=== PATIENT | female | born 1960 | race Caucasian/White ===

== ENCOUNTER 2022-10-27 15:07 | Emergency (ER) | payer MEDICARE, SELFPAY ==
[2022-10-27 15:16] VITALS: BP 93/60; PULSE 96; RESP 20; TEMP 36.7; O2SAT 97
--- NOTE | 2022-10-27 16:17 | ED.GENADULT ---
HPI - General Adult General Chief complaint: Skin/Abscess/Foreign Body Stated complaint: Skin Problem/Right Leg Source: patient Mode of arrival: ambulatory Limitations: no limitations History of Present Illness HPI narrative: Patient presents with concerns regarding a blister to the right lower extremity. Symptom onset yesterday. She has chronic redness and swelling to bilateral lower extremities. She indicates she fractured her hip sometime last year. There is some imaging done in September of 2021 that showed a fracture but she indicates she was not informed of this until March 2022 when she attempted to have an injection performed in that joint. She states she recently saw Dr Rdz and is tentatively planning on right hip repair. She denies any fever, chills, nausea, vomiting, purulence from the affected area. She is diabetic. She does not check her blood sugars. Last A1c was 8.0 per reports. She does smoke approximately 1 pack per day. She attempted to see her primary doctor today but that he did not have any openings. She has not had an echocardiogram in the past. She sits in a wheelchair most of the day and sleeps in a recliner at night. Related Data Home Medications Medication Instructions Recorded Confirmed atorvastatin 40 mg tablet mg 10/27/22 celecoxib 200 mg capsule mg 10/27/22 ergocalciferol (vitamin D2) 1,250 10/27/22 mcg (50,000 unit) capsule gabapentin 100 mg capsule mg 10/27/22 indapamide 2.5 mg tablet mg 10/27/22 metformin 500 mg tablet mg 10/27/22 metformin 500 mg tablet mg 10/27/22 semaglutide 0.25 mg or 0.5 mg (2 mg subcut 10/27/22 mg/3 mL) subcutaneous pen injector (Ozempic) tramadol 50 mg tablet mg 10/27/22 Allergies Allergy/AdvReac Type Severity Reaction Status Date / Time Penicillins Allergy Unknown Verified 10/27/22 15:17 Review of Systems Review of Systems: CONSTITUTIONAL: Denies fever, chills, or sweats. EYES: Denies visual changes, redness, or discharge. ENT: Denies rhinorrhea, congestion, sore throat, or otalgia. CARDIOVASCULAR: Denies chest pain, palpitations RESPIRATORY: Denies cough or dyspnea. GASTROINTESTINAL: Denies abdominal pain, nausea, vomiting, or diarrhea. GENITOURINARY: Denies dysuria or hematuria. SKIN: Reports redness in bilateral lower extremities. Reports blister to right lower extremity MUSCULOSKELETAL: Reports swelling in bilateral lower extremities. Denies back pain, joint pain, or myalgia. NEUROLOGIC: Denies headache, numbness, dizziness, or weakness. PSYCHIATRIC: Denies anxiety or depression. [facility] Past Medical History Medical History (Updated 10/27/22 @ 16:23 by FLY GoodenP, ) Diabetes Hip fracture, right Obesity Osteoporosis Seizure Surgical History Surgical History No pertinent past surgical history Family History Family History Mother Family history non-contributory Social History Social History Smoking packs per day: 1 Smoking cigarettes per day: 20.0 Smoking status: Current every day smoker Tobacco type: cigarettes Substance use: never Living arrangements: with family Gender identity (if verbalized by the patient): Female Spiritual care concerns: No Exam Narrative: GENERAL: Seated in a wheelchair. Well-appearing, well-nourished, and in no acute distress. HEAD: Normocephalic, atraumatic. EYES: PERRLA and EOMI. ENT: Nares clear, no rhinorrhea or epistaxis. Mucous membranes moist. Oropharynx without tonsillar hypertrophy exudate or other lesions. Bilateral TMs pearly hall nonbulging NECK: Supple. No adenopathy or masses. No carotid bruits or JVD CHEST: Clear to auscultation. No respiratory distress. No wheezes rales or rhonchi HEART: Regular rate and rhythm. No murmur heard. Normal peripheral pulses
== END 2022-10-27 16:02 | disposition home or self-care (01) ==
PROVIDERS: Emergency Provider Nurse Practitioner; PCP Internal Medicine
DX: I87.8 Other specified disorders of veins (principal); F17.210 Nicotine dependence, cigarettes, uncomplicated; E11.9 Type 2 diabetes mellitus without complications; E66.9 Obesity, unspecified; Z68.41 Body mass index [BMI] 40.0-44.9, adult; M81.0 Age-related osteoporosis without current pathological fracture; Z79.84 Long term (current) use of oral hypoglycemic drugs
CPT/HCPCS: 99213; G0463